=== PATIENT | male | born 1990 | race African-American/Black ===

== ENCOUNTER 2022-08-28 23:15 | Emergency (ER) | payer SELFPAY ==
[~2022-08-28] VITALS: Ht 180.3 cm; Wt 104.3 kg
[2022-08-28 23:22] VITALS: BP 144/88
--- NOTE | 2022-08-28 23:29 | NUR ---
TO LOBBY FOLLOWING TRIAGE
--- NOTE | 2022-08-29 01:47 | NUR ---
PATIENT LEFT WITHOUT BEING SEEN BY DR. Garcia. NO FURTHER CARE PROVIDED FOR PATIENT.
== END 2022-08-29 01:47 | disposition left against medical advice (07) ==
LOC: MED 23:15
DX: K08.89 Other specified disorders of teeth and supporting structures (principal); Z53.21 Procedure and treatment not carried out due to patient leaving prior to being seen by health care provider